=== PATIENT | male | born 1960 | race Caucasian/White ===

== ENCOUNTER 2016-11-26 10:43 | Emergency (ER) | payer MEDICAID, OTHER ==
[~2016-11-26] VITALS: Ht 172.7 cm; Wt 82.0 kg
[~2016-11-26 10:43] MED LIST: ANTARA; ASA; ATOR80TA PO; DARU75TA PO; EMTR1TAB11 PO; FENO145T19 PO; FLUCONAZOLE; FOLI-43 PO; ISOS30TA6 PO; ISOSORBIDE; LIPITOR; LISINOPRIL; METOPROLOL; NITRO; PLAVIX; RITO100T PO; SERTRALINE
[2016-11-26 11:52] LABS: BASOPHILS % 0.8 % (0.0-2.0); EOSINOPHILS % 2.8 % (0.0-5.0); HEMATOCRIT. 42.6 % (42.0-52.0); HEMOGLOBIN. 15.1 g/dL (14.0-18.0); LYMPHOCYTES % 33.1 % (20.0-50.0); MEAN CORPUSCULAR HEMOGLOBIN 32.3 pg (28.0-32.0); MEAN CORPUSCULAR VOLUME 91.3 fL (80.0-94.0); MEAN PLATELET VOLUME 7.7 fl (7.4-10.4); MONOCYTES % 6.2 % (2.0-8.0); NEUTROPHILS % 57.1 % (40.0-76.0); PLATELET 229 x1000/uL (130-400); RED BLOOD CELL COUNT 4.67 mill/uL (4.7-6.1); RED CELL DISTRIBUTION WIDTH 13.2 % (11.6-14.6)
[2016-11-26 11:57] LABS: CHLORIDE 107 mEq/L (98-107)
[2016-11-26 12:08] LABS: CARBON DIOXIDE 28 mEq/L (21-32)
[2016-11-26 14:12] VITALS: BP 164/91
== END 2016-11-26 14:14 | disposition home or self-care (01) ==
LOC: ER 10:43
DX: R53.1 Weakness (principal); I10 Essential (primary) hypertension; I25.10 Atherosclerotic heart disease of native coronary artery without angina pectoris; F32.9 Major depressive disorder, single episode, unspecified; Z20.6 Contact with and (suspected) exposure to human immunodeficiency virus [HIV]; Z86.73 Personal history of transient ischemic attack (TIA), and cerebral infarction without residual deficits; Z95.1 Presence of aortocoronary bypass graft
CPT/HCPCS: 36415; 71010; 80053; 85025; 93005; 99285; Z7610

== ENCOUNTER 2019-10-20 05:15 | Emergency (ER) | payer MEDICAID ==
[~2019-10-20] VITALS: Ht 172.7 cm; Wt 86.0 kg
[~2019-10-20 05:15] MED LIST changes: -FENO145T19 PO; +FENO145T25 PO
[2019-10-20] MEDS ORDERED: ACETAMINOPHEN 325MG TABLET PO ONE (06:30)
[2019-10-20] MEDS ORDERED: KETOROLAC 60MG/2ML VIAL IM ONE (06:30)
[2019-10-20 06:48] VITALS: BP 154/74
== END 2019-10-20 06:49 | disposition home or self-care (01) ==
LOC: ER 05:15
DX: M54.2 Cervicalgia (principal); E11.9 Type 2 diabetes mellitus without complications; M19.90 Unspecified osteoarthritis, unspecified site; I10 Essential (primary) hypertension; E78.00 Pure hypercholesterolemia, unspecified
CPT/HCPCS: 96372; 99283; J1885